=== PATIENT | female | born 1965 | race Caucasian/White ===

== ENCOUNTER 2022-08-27 08:50 | Day surgery (SDC) | payer MEDICAID ==
[~2022-08-27] VITALS: Ht 160 cm; Wt 90.3 kg
[2022-08-27] MEDS ORDERED: NS 1000 ML IV.SOLN IV ONE (10:55)
[2022-08-27] MEDS ORDERED: SEVOFLURANE 15 MIN GAS INH ONE (10:55)
[2022-08-27] MEDS ORDERED: PROPOFOL 200MG/ 20ML VIAL (DIPRIVAN) IV ONE (10:55)
[2022-08-27] MEDS ORDERED: LR 1,000 ML IV.SOLN IV ONE (10:55)
[2022-08-27] MEDS ORDERED: ONDANSETRON HCL 4 MG/2 ML VIAL IVP ONE (10:55)
[2022-08-27] MEDS ORDERED: fentaNYL CITRATE/PF 100 MCG/2 ML AMP IVP ONE (10:55)
[2022-08-27] MEDS ORDERED: DEXAMETHASONE SOD PHOSPHATE 4 MG/ML VIAL IVP ONE (10:55)
[2022-08-27] MEDS ORDERED: NS IRRIG SOLN 1000 ML IR ONE (10:55)
[2022-08-27] MEDS ORDERED: MEPERIDINE HCL/PF 25 MG/ML DISP.SYRIN IVP PRN (11:30)
[2022-08-27] MEDS ORDERED: METOCLOPRAMIDE HCL 10 MG/2 ML VIAL IVP PRN (11:30)
[2022-08-27] MEDS ORDERED: HYDROmorphone 1 MG/ML INJ. CARTRIDGE IVP PRN (11:30)
[2022-08-27] MEDS ORDERED: ONDANSETRON HCL 4 MG/2 ML VIAL IVP PRN (11:30)
[2022-08-27] MEDS ORDERED: LR 1,000 ML IV SCH (11:30)
[2022-08-27] MEDS ORDERED: HYDROmorphone 1 MG/ML INJ. CARTRIDGE ONE (12:09)
[2022-08-27] MEDS ORDERED: METOCLOPRAMIDE HCL 10 MG/2 ML VIAL ONE (12:09)
[2022-08-27 12:55] VITALS: BP_SYST 130
== END 2022-08-27 13:45 | disposition home or self-care (01) ==
LOC: SDS 08:50 → SMU 08:51 → SDS 13:45
PROVIDERS: ATTEND Obstetrics & Gynecology
DX: N95.0 Postmenopausal bleeding (principal); E66.9 Obesity, unspecified; Z79.899 Other long term (current) drug therapy; Z68.41 Body mass index [BMI] 40.0-44.9, adult; Z20.822 Contact with and (suspected) exposure to COVID-19
CPT/HCPCS: 36415 ×2; 58558; 88305; 87426; U0003; J1100; J2765; J2405; J2704; J3010; J1170; J7120; J7030